=== PATIENT | female | born 1995 | race American Indian/Alaskan Native ===

== ENCOUNTER 2020-11-02 21:29 | Inpatient (IN) | payer MEDICAID ==
[2020-11-02] MEDS ORDERED: ePHEDrine SULFATE 50 MG/1 ML INJ IV PRN (23:26)
[2020-11-02] MEDS ORDERED: MINERAL OIL 30 ML ORAL LIQD PO PRN (23:26)
[2020-11-02] MEDS ORDERED: TERBUTALINE 1 MG/1 ML INJ SUB-Q PRN (23:26)
[2020-11-02] MEDS ORDERED: LIDOCAINE (2%) 20 MG/1 ML VIAL 20 ML MDV INFILTRATI ONE (23:26)
[2020-11-02] MEDS ORDERED: LACTATED RINGERS 1,000 ML IV SCH (23:30)
[2020-11-02] MEDS ORDERED: OXYTOCIN DRIP 30 UNITS/500 ML BAG IV SCH (23:45)
[2020-11-02 23:54] LABS: Hematocrit 35.7 % (30.3-42.9); Hemoglobin 12.2 gm/dl (10.1-14.3); Mean Corpuscular HGB Conc 34 % (30-34); Mean Corpuscular Volume 101 fl (79-97); Platelet Count 317 K/mm3 (140-440); Red Blood Count 3.54 M/mm3 (3.65-5.03); Red Cell Distribution Width 14.2 % (13.2-15.2)
[2020-11-03] MEDS ORDERED: DINOPROSTONE 10 MG VAG SUPP VG ONE (00:10)
--- NOTE | 2020-11-03 08:03 | History and Physical Report ---
History of Present Illness Date of examination: 11/03/20 Date of admission: 11/02/20 21:29 Chief complaint: Here for induction of labor History of present illness: Pt is a 24 yo at 38w3d EGA who is undergoing induction of labor secondary to growth restriction. She received Cervidil overnight. She reports positive movement and denies LOF, vaginal bleeding, or painful contractions. She has received care with [facility]. Her course has been complicated by growth restriction, substance use (tobacco, marijuana, and ecstacy, last use months ago), history of bipolar disorder/schizophrenia (pt denies symptoms in the past several years), hemorrhoids, and Rh negative status. She is GBS negative. Past History Past Medical History: other (Bipolar disorder, schizophrenia (no symptoms for several years)) Past Surgical History: no surgical history Social history: no significant social history - Obstetrical History Expected Date of Delivery: 11/14/20 Actual Gestation: 38 Week(s) 3 Day(s) : 1 Para: 0 Medications and Allergies Allergies Allergy/AdvReac Type Severity Reaction Status Date / Time apple Allergy Hives Unverified 11/02/20 21:31 hazelnut Allergy Hives Unverified 11/02/20 21:31 peach Allergy Hives Unverified 11/02/20 21:31 peanut Allergy Itching Unverified 11/02/20 21:31 Active Meds: Active Medications Ephedrine Sulfate (Ephedrine Sulfate 50 Mg/1 Ml Inj) 10 mg IV Q2M PRN PRN Reason: Hypotension Fentanyl (Fentanyl 100 Mcg/2 Ml Inj) 100 mcg IV Q2H PRN PRN Reason: Labor Pain Oxytocin/Sodium Chloride (Pitocin/Ns 30 Unit/500ml) 30 units in 500 mls @ 2 mls/hr IV TITR VIBHA; Protocol Lactated Ringer's (Lactated Ringers) 1,000 mls @ 125 mls/hr IV DIRECT VIBHA Last Admin: 11/03/20 06:40 Dose: 125 mls/hr Documented by: Mineral Oil (Mineral Oil 30 Ml Oral Liqd) 30 ml PO QHS PRN PRN Reason: Constipation Terbutaline Sulfate (Terbutaline 1 Mg/1 Ml Inj) 0.25 mg SUB-Q ONCE PRN PRN Reason: Hyperstimulation/Hypertonicity Review of Systems All systems: negative Cardiovascular: no chest pain, no shortness of breath Genitourinary: no vaginal discharge, no leakage of fluid, no contractions - Vital Signs Vital signs: Vital Signs Temp Pulse Resp BP Pulse Ox 98.4 F 87 16 107/59 99 11/02/20 22:55 11/02/20 22:55 11/02/20 22:55 11/02/20 22:55 11/02/20 22:55 Temp Pulse Resp BP Pulse Ox 98.5 F 69 16 114/59 98 11/03/20 03:40 11/03/20 07:54 11/02/20 22:55 11/03/20 07:00 11/03/20 07:54 - Physical Exam Abdomen: Positive: soft Uterus: Positive: enlarged (gravid) - Obstetrical FHR: category 1 Results Result Diagrams: 11/02/20 23:13 Abnormal lab results 11/02/20 Range/Units 23:13 RBC 3.54 L (3.65-5.03) M/mm3 MCV 101 H (79-97) fl MCH 34 H (28-32) pg All other labs normal. Assessment and Plan A: 24 yo at 38w3d EGA by US not c/w LMP growth restriction Substance use this Question diagnoses of bipolar disorder and schizophrenia Rh negative GBS negative, membranes intact P: Continue induction of labor May eat breakfast Closely monitor clinical status Anticipate
--- NOTE | 2020-11-03 13:08 | Event Note ---
Date: 11/03/20 Cervidil removed at 1245. SVE 0.5/0/-3. Cook Catheter placed, each balloon inflated with 60cc sterile water. Patient tolerated well, FHT reassuring throughout.
--- NOTE | 2020-11-03 19:11 | Event Note ---
Date: 11/03/20 Cook catheter expelled at 1905, SVE /-2. Initiate Cytotec PV.
[2020-11-03] MEDS ORDERED: miSOPROStol 25 MCG TAB VG SCH (20:00)
[2020-11-04] MEDS: fentaNYL 100 MCG/2 ML INJ IV PRN ×4 (03:24→15:18)
--- NOTE | 2020-11-04 08:54 | Event Note ---
Date: 11/04/20 Patient undergoing induction. AROM clear fluid. Cervix . will initiate pitocin
[2020-11-04] MEDS ORDERED: ACETAMINOPHEN 325 MG TAB PO PRN (17:19)
[2020-11-04] MEDS ORDERED: MAGNESIUM HYDROXIDE (MOM) ORAL LIQD UDC PO PRN (17:19)
[2020-11-04] MEDS ORDERED: LANOLIN/ZINC/DIMETHICONE (LANSINOH) 7 GM TP PRN (17:19)
[2020-11-04] MEDS ORDERED: PROMETHAZINE 25 MG TAB PO PRN (17:19)
[2020-11-04] MEDS ORDERED: diphenhydrAMINE 25 MG CAP PO PRN (17:19)
[2020-11-04] MEDS ORDERED: PROMETHAZINE 25 MG RECT SUPP PR PRN (17:19)
[2020-11-04] MEDS ORDERED: HYDROcodone/ACETAMINOPHEN 5-325 MG TAB PO PRN (17:19)
[2020-11-04] MEDS ORDERED: WITCH HAZEL/ GLYCERIN PAD TP PRN (17:19)
[2020-11-04] MEDS ORDERED: ONDANSETRON 4 MG/2 ML INJ IV PRN (17:19)
--- NOTE | 2020-11-04 17:19 | Procedure Note ---
OB Delivery Note - Delivery Date of Delivery: 11/04/20 Surgeon: HIPOLITO BRADLEY Estimated blood loss: 100cc - Vaginal Delivery presentation: vertex Delivery position: OA Intrapartum events: extend. bradycardia Delivery monitor: external FHT, external uterine Route of delivery: vacuum extraction Delivery placenta: spontaneous Delivery cord: nuchal cord, 3 umbilical vessels, other (Very thin umbilical cord with out evidence of [place] jelly) Delivery laceration: none Anesthesia: none Delivery comments: The patient progressed to complete complete +2 after a pushing in knee-chest position. tracing was complicated by bradycardic episodes with slow return to baseline. The decision was made to proceed with a vacuum assisted vaginal delivery. The patient was counseled verbally about the procedure. The Kiwi vacuum was placed the crown of the infant's head. The patient pushed with assistance of the vacuum. Experienced 2 pop offs. The vacuum was not applied for a third application. The patient delivered spontaneously with good maternal effort. After delivery of the head there was noted to be a nuchal cord x1 that was manually reduced. The was bulb suctioned the cord was clamped and cut and the infant was placed on the warmer for evaluation. Placenta delivered spontaneously intact with a three-vessel cord. It was noted that the umbilical cord had minimal amount of [place]'s jelly. Patient sustained no lacerations. The infant is a liveborn female with Apgars of 7 and 9 weight 5 pounds 7 ounces. - Infant A at 1 minute: 7 at 5 minutes: 9 (Weight 5 pounds 7 ounces) Infant Gender: Female
[2020-11-04] MEDS: IBUPROFEN 600 MG TAB PO SCH (22:04)
[2020-11-05] MEDS: IBUPROFEN 600 MG TAB PO SCH ×5 (04:44→23:28)
[2020-11-05 06:20] LABS: Hematocrit 33.6 % (30.3-42.9); Hemoglobin 11.5 gm/dl (10.1-14.3)
--- NOTE | 2020-11-05 12:32 | Progress Note ---
Assessment and Plan - Patient Problems (1) IUGR (intrauterine growth restriction) Current Visit: Yes Status: Acute Plan to address problem: patient and infant doing well discharge home Subjective - Subjective Date of service: 11/05/20 Interval history: Patient without complaints. Pain well controlled Patient reports: appetite normal, voiding normally, pain well controlled [place]: doing well Objective - Vital Signs Latest vital signs: Vital Signs Temp Pulse Resp BP BP Pulse Ox 11/05/20 08:53 98.4 F 86 18 104/71 96 11/05/20 06:05 18 11/05/20 05:15 97.9 F 78 20 106/68 99 11/05/20 04:44 18 11/05/20 00:11 98.2 F 81 20 105/61 99 11/04/20 23:04 18 11/04/20 22:04 18 11/04/20 15:40 66 136/72 Intake and Output 11/04/20 11/05/20 11/05/20 22:59 06:59 14:59 Intake Total 240 600 240 Output Total 850 Balance 240 -250 240 Intake: Oral 240 600 240 Output: Urine 850 Void 850 Other: Total, Intake Amount 240 120 240 Total, Output Amount 300 # Voids Void 1 Estimated Blood Loss 100 - Exam Uterus: Present: normal, firm
--- NOTE | 2020-11-05 12:33 | Discharge Summary ---
Providers - Providers Date of Admission: 11/03/20 11:05 Date of discharge: 11/05/20 Attending physician: PARKER ELLIOTT MD Primary care physician: PARKER ELLIOTT MD Hospitalization Reason for admission: induction of labor Delivery: Discharge diagnosis: IUP at term delivered baby: female Hospital course: Patient admitted for IOL for IUGR. Patient had a . uncomplicated Condition at discharge: Good Disposition: DC-01 TO HOME OR SELFCARE - Discharge Diagnoses (1) IUGR (intrauterine growth restriction) Status: Acute Plan - Discharge Medications Prescriptions: Ibuprofen [Motrin] 800 mg PO Q8HR PRN #30 tablet PRN Reason: Pain , Severe (7-10) HYDROcodone/APAP 5-325 [Tyler 5/325] 1 each PO Q6HR PRN #15 tablet PRN Reason: Pain - Provider Discharge Summary Activity: no sex for 6 weeks, no heavy lifting 4 weeks, no strenuous exercise Diet: routine Instructions: routine Additional instructions: [] Smoking cessation referral if applicable(refer to patient education folder for contact #) [] Refer to [facility] Booklet Call your doctor immediately for: * Fever > 100.5 * Heavy vaginal bleeding ( >1 pad per hour) * Severe persistent headache * Shortness of breath * Reddened, hot, painful area to leg or breast * schedule visit in 4 weeks - Follow up plan
[2020-11-06] MEDS: IBUPROFEN 600 MG TAB PO SCH ×3 (05:24→21:11)
[2020-11-06 22:41] VITALS: BP 114/72
== END 2020-11-06 23:45 | disposition home or self-care (01) | DRG 775 ==
LOC: LD 21:29 → UNDOADMIN 21:29 → LD 11-03 11:05 → OB 11-04 20:55
PROVIDERS: ADMIT Obstetrics & Gynecology; ATTEND Obstetrics & Gynecology
PROC: 0U7C7ZZ Dilation of Cervix, Via Natural or Artificial Opening (ICD-10-PCS; 2020-11-03)
PROC: 10D07Z6 Extraction of Products of Conception, Vacuum, Via Natural or Artificial Opening (ICD-10-PCS; principal; 2020-11-04)
PROC: 10907ZC Drainage of Amniotic Fluid, Therapeutic from Products of Conception, Via Natural or Artificial Opening (ICD-10-PCS; 2020-11-04)
PROC: 3E0234Z Introduction of Serum, Toxoid and Vaccine into Muscle, Percutaneous Approach (ICD-10-PCS; 2020-11-05)
DX: O76 Abnormality in fetal heart rate and rhythm complicating labor and delivery (principal); O36.5930 Maternal care for other known or suspected poor fetal growth, third trimester, not applicable or unspecified; Z20.822 Contact with and (suspected) exposure to COVID-19; O69.1XX0 Labor and delivery complicated by cord around neck, with compression, not applicable or unspecified; O99.344 Other mental disorders complicating childbirth; F31.9 Bipolar disorder, unspecified; O99.324 Drug use complicating childbirth; F19.90 Other psychoactive substance use, unspecified, uncomplicated; F12.90 Cannabis use, unspecified, uncomplicated; Z3A.38 38 weeks gestation of pregnancy; Z37.0 Single live birth; Z91.010 Allergy to peanuts
CPT/HCPCS: 36415; 59200; 85014; 85018; 85027; 85461; 86592; 86850; 86900; 86901; G0378; J2590; J2790; J3010; J7120; U0003